=== PATIENT | female | born 1975 | race Two or more races ===

== ENCOUNTER 2016-06-11 18:49 | Emergency (ER) | payer MEDICAID, OTHER ==
[~2016-06-11 18:49] MED LIST: TDAP ADULT 0.5 ML INJ (BOOSTRIX) IM ONE
[2016-06-11 19:02] VITALS: BP 113/66; PULSE 80; RESP 16; O2SAT 100
[2016-06-11] MEDS ORDERED: LETS SOLN TOPICAL 1 EA SYR TP ONE (19:05)
--- NOTE | 2016-06-11 19:16 | UCPHY ---
H & P Patient Type: New Chief Complaint Nursing Narrative: cut palm of r hand with knife while washing dishes Time Seen by Provider: 06/11/16 19:11 HPI/ROS: CHIEF COMPLAINT: Hand laceration HISTORY OF PRESENT ILLNESS: Patient is a 41-year-old female who comes to the Urgent Care with her complaining of a laceration to her right hand. She cut herself with a knife while doing dishes. She has a laceration to the thenar eminence. Normal range of motion. Normal sensation and capillary refill distally. No other injuries. REVIEW OF SYSTEMS: Constitutional: denies: chills, fever, recent illness, recent injury EENTM: denies: blurred vision, double vision, nose congestion Respiratory: denies: cough, shortness of breath Cardiac: denies: chest pain, irregular heart rate, lightheadedness, palpitations Gastrointestinal/Abdominal: denies: abdominal pain, diarrhea, nausea, vomiting, blood streaked stools Genitourinary: denies: dysuria, frequency, hematuria, pain Musculoskeletal: denies: joint pain, muscle pain Skin: See HPI Neurological: denies: headache, numbness, paresthesia, tingling, dizziness, weakness Hematologic/Lymphatic: denies: blood clots, easy bleeding, easy bruising Immunologic/allergic: denies: HIV/AIDS, transplant EXAM: GENERAL: Well-appearing, well-nourished and in no acute distress. HEAD: Atraumatic, normocephalic. EYES: Pupils equal round and reactive to light, extraocular movements intact, sclera anicteric, conjunctiva are normal. ENT: TMs normal, nares patent, oropharynx clear without exudates. Moist mucous membranes. NECK: Normal range of motion, supple without lymphadenopathy or JVD. LUNGS: Breath sounds clear to auscultation bilaterally and equal. No wheezes rales or rhonchi. HEART: Regular rate and rhythm without murmurs, rubs or gallops. ABDOMEN: Soft, nontender, normoactive bowel sounds. No guarding, no rebound. No masses appreciated. BACK: No CVA tenderness, no spinal tenderness, step-offs or deformities EXTREMITIES: Normal range of motion, no pitting or edema. No clubbing or cyanosis. NEUROLOGICAL: Cranial nerves II through XII grossly intact. Normal speech, normal gait. 5/5 strength, normal movement in all extremities, normal sensation PSYCH: Normal mood, normal affect. SKIN: 2 cm laceration to right thenar eminence. Small amount of muscle protruding. Neurovascular intact distally. Source: Patient - Personal History LMP (Females 10-55): 1-7 Days Ago - Medical/Surgical History Hx Asthma: No Hx Chronic Respiratory Disease: No Hx Diabetes: No Hx Cardiac Disease: No Hx Renal Disease: No Hx Cirrhosis: No Hx Alcoholism: No Other PMH: denies - Family History Significant Family History: No pertinent family hx - Social History Smoking Status: Never smoked Alcohol Use: Sober Drug Use: None Constitutional: Initial Vital Signs Temperature (C) 36.8 C 06/11/16 18:59 Heart Rate 80 06/11/16 18:59 Respiratory Rate 16 06/11/16 18:59 Blood Pressure 113/66 06/11/16 18:59 O2 Sat (%) 100 06/11/16 18:59 O2 Delivery Mode Room Air Allergies/Adverse Reactions: No Known Allergies Allergy (Unverified 06/11/16 18:59) Home Medications: Medication Instructions Recorded NK [No Known Home Meds] 06/11/16 Medical Decision Making Procedures: Procedure: Laceration repair. Verbal consent was obtained from the patient. The 2 cm right hand laceration was anesthetized with 1% lidocaine with epi and bicarbonate locally infiltrated. The wound was irrigated copiously according to protocol, draped and explored to its base. It was approximately 1/2 cm deep. There were no deep structures involved. No tendon, nerve, or vascular injury was identified when explored through full range of motion. No foreign body was identified. The wound was repaired with is 5.0 Prolene, 5 sutures, interrupted. The wound repair was simple without wound margin revisement or multiple flap alignment. The procedure was performed by myself. A dressing was then placed with sterile gauze and bacitracin. ED Course/Re-evaluation: Patient tolerated laceration repair. We will also update her tetanus. She is happy with this we discussed suture care and removal. Differential Diagnosis: Partial list of the Differential diagnosis considered include but were not limited to; laceration, foreign body, puncture, tendon injury, vascular injury , nerve injury and although unlikely based on the history and physical exam, I also considered assault fracture. I discussed these differential diagnoses and the plan with the patient as well as the usual and expected course. The patient understands that the diagnosis is provisional and that in medicine we are not always correct and that further workup is often warranted. Usual and customary warnings were given. All of the patient's questions were answered. The patient was instructed to return to the emergency department should the symptoms at all worsen or return, otherwise to followup with the physician as we discussed. Departure - Departure Disposition: Home, Routine, Self-Care Clinical Impression: Laceration, Tetanus Condition: Fair Instructions: Laceration (ED), Care For Your Stitches (ED), Diphtheria/ Pertussis/Tetanus Vaccine (By injection) Referrals: CRISTINA SANDERSON,. [Primary Care Provider] - As per Instructions - PQRS PQRS Measurement: Not applicable
[2016-06-11] MEDS ORDERED: TETANUS IMMUNE GLOBULIN/PF 250 UNIT SYR IM ONE (19:30)
[2016-06-11 19:42] VITALS: TEMP 98.1
== END 2016-06-11 19:40 | disposition home or self-care (01) ==
LOC: CED 18:49
PROC: 0HQFXZZ Repair Right Hand Skin, External Approach (ICD-10-PCS; principal; 2016-06-11)
DX: S61.411A Laceration without foreign body of right hand, initial encounter (principal); W26.0XXA Contact with knife, initial encounter; Y93.G1 Activity, food preparation and clean up
CPT/HCPCS: G0463-PO; J1670